=== PATIENT | male | born 1985 | race Caucasian/White ===

== ENCOUNTER 2018-09-23 21:51 | Emergency (ER) | payer OTHER ==
[2018-09-23 21:59] VITALS: BP 134/89
--- NOTE | 2018-09-23 22:10 | EDPHY ---
HPI/HX/ROS/PE/MDM Narrative: CHIEF COMPLAINT: Right ankle injury HPI: The patient is a 32 y/o male complaining of a right ankle injury today while at work. He states that he twisted his ankle twice today while working at [employer]. He is unsure how he injured it the first time, but rolled his ankle on a dust selby when he injured it the second time tonight, which was 4 hours ago. He has been able to bear minimal weight since injuring the ankle. No fever, chest pain, shortness of breath, abdominal pain, urinary or bowel complaints, numbness , paresthesias. REVIEW OF SYSTEMS: Aside from elements discussed in the HPI, a comprehensive 10 system review of systems is otherwise negative. PMH: Hernia repair, migraines SOCIAL HISTORY: Resides at a assisted house, friend at bedside, employed at [employer] PHYSICAL EXAM: Extremities: Tenderness, swelling, ecchymosis of the lateral right malleolus and lateral right foot. Full range of motion. Neuro: Oriented x3. Normal motor function. Normal sensory function. ED Course: 2229: I reviewed patient's x-rays which do no reveal any osseous injuries. Patient will be placed in a velcro stirrup splint. Procedure: Splint placement. A velcro stirrup splint was applied to the right ankle by the tech. After application of the splint I returned and re-examined the patient. The splint was adequately immobilizing the joint and distal to the splint the patient's circulation and sensation was intact. 2233: Reassessed patient and discussed imaging findings. He is now requesting pain medications; 600mg PO Motrin administered. I have advised him to follow up with an orthopedic surgeon. Return precautions provided; patient is comfortable with this plan. - Data Points Imaging Results: Imaging Impressions Ankle X-Ray 09/23/18 22:08 Impression: No definite fracture of the right ankle. Imaging: I viewed and interpreted images myself Medications Given: Discontinued Medications Ibuprofen (Motrin) 600 mg PO EDNOW ONE Stop: 09/23/18 22:15 Last Admin: 09/23/18 22:17 Dose: 600 mg General Time Seen by Provider: 09/23/18 22:05 Initial Vital Signs: Initial Vital Signs Temperature (C) 36.3 C 09/23/18 21:56 Heart Rate 96 09/23/18 21:56 Respiratory Rate 16 09/23/18 21:56 Blood Pressure 134/89 H 09/23/18 21:56 O2 Sat (%) 96 09/23/18 21:56 O2 Delivery Mode Room Air Allergies/Adverse Reactions: No Known Allergies Allergy (Unverified 09/23/18 21:55) Home Medications: Medication Instructions Recorded Propranolol HCl 09/23/18 Departure - Departure Disposition: Home, Routine, Self-Care Clinical Impression: Ankle sprain Condition: Good Instructions: Ankle Sprain (ED), Ankle Stirrup Splint (ED) Additional Instructions: Rest, ice, elevation. Follow up with an orthopedic surgeon within one week if pain persists. Return to the emergency department for worsening pain, swelling , numbness, weakness or other concerns. Wear splint for comfort, weight bear as tolerated. Referrals: [facility],. [Clinic] - As per Instructions Agustín Kan MD [Medical Doctor] - As per Instructions Stand Alone Forms: Work Comp Follow Up, Work Excuse Report Scribed for: Brian Paniagua Report Scribed by: Scarlett Vargas Date of Report: 09/23/18 Time of Report: 22:10 Physician Review and Approval Statement: Portions of this note were transcribed by an ED scribe. I personally performed the history, physical exam, and medical decision making; and confirm the accuracy of the information in the transcribed note.
[2018-09-23] MEDS ORDERED: IBUPROFEN 600 MG TAB PO ONE (22:14)
== END 2018-09-23 22:45 | disposition home or self-care (01) ==
DX: S93.401A Sprain of unspecified ligament of right ankle, initial encounter (principal); G43.909 Migraine, unspecified, not intractable, without status migrainosus; X50.9XXA Other and unspecified overexertion or strenuous movements or postures, initial encounter; Y92.512 Supermarket, store or market as the place of occurrence of the external cause; Y93.9 Activity, unspecified; Y99.0 Civilian activity done for income or pay
CPT/HCPCS: L4350

== ENCOUNTER 2019-01-03 19:06 | Emergency (ER) | payer MEDICAID, OTHER ==
--- NOTE | 2019-01-03 19:16 | EDPHY ---
H & P Stated Complaint: RUQ pain x 4 days, V/D Source: Patient Exam Limitations: No limitations - Personal History Current Tetanus Diphtheria and Acellular Pertussis (TDAP): Yes - Medical/Surgical History Hx Asthma: No Hx Chronic Respiratory Disease: No Hx Diabetes: No Hx Cardiac Disease: No Hx Renal Disease: No Hx Cirrhosis: No Hx Alcoholism: No Hx HIV/AIDS: No Hx Splenectomy or Spleen Trauma: No Other PMH: Hernia surgery as , migraine - Social History Smoking Status: Current every day smoker Alcohol Use: None Time Seen by Provider: 01/03/19 19:16 HPI/ROS: CHIEF COMPLAINT: Right upper quadrant pain, nausea, vomiting HISTORY OF PRESENT ILLNESS: The patient presents the ED with complaints of progressively worsening right upper quadrant epigastric pain. The patient reports associated nausea and vomiting. The patient denies prior history of abdominal pain. He denies prior history of abdominal surgery. The patient denies fever, cough or congestion. He has no complaints of asymmetric calf pain or swelling. The patient denies melena. He denies significant alcohol or NSAID usage. He currently rates his pain as an 8/10. REVIEW OF SYSTEMS: A comprehensive 10 point review of systems is otherwise negative aside from elements mentioned in the history of present illness. (Jett Morales) - Physical Exam Exam: General Appearance: Alert, no distress Eyes: Pupils equal and round no pallor or injection ENT, Mouth: Mucous membranes moist Respiratory: There are no retractions, lungs are clear to auscultation Cardiovascular: Regular rate and rhythm Gastrointestinal: Epigastric tenderness to palpation, right upper quadrant tenderness to palpation, no peritoneal signs. No right lower quadrant tenderness to palpation Neurological: A&O, normal motor function, normal sensory exam, normal cranial nerves Skin: Warm and dry, no rashes Musculoskeletal: Neck is supple nontender Extremities: symmetrical, full range of motion (Jett Morales) Constitutional: Initial Vital Signs Temperature (C) 36.8 C 01/03/19 19:11 Heart Rate 93 01/03/19 19:11 Respiratory Rate 20 01/03/19 19:11 Blood Pressure 125/84 H 01/03/19 19:11 O2 Sat (%) 98 01/03/19 19:11 O2 Delivery Mode Room Air Allergies/Adverse Reactions: No Known Allergies Allergy (Unverified 01/03/19 19:11) Home Medications: Medication Instructions Recorded Propranolol HCl 09/23/18 Medical Decision Making - Diagnostics Imaging Results: Imaging Impressions Abdomen Ultrasound 01/03/19 19:24 Impression: 1. Contracted gallbladder. No cholelithiasis, biliary dilation, or choledocholithiasis. 2. No free fluid. 3. Hepatic steatosis. Findings discussed with Emergency Department physician, Jett Morales M.D. , on January 03, [address] 01/03/19 20:35 Impression: 1. Moderately distended stomach; however, no evidence of small bowel obstruction or ileus. 2. No pneumoperitoneum, free fluid, or localized intraabdominal inflammatory process. 3. Normal appendix. Moderate constipation. 4. Left nephrolithiasis. No hydronephrosis. Findings discussed with Emergency Department physician, Marjan Guzman M.D., on January 03, 2019 at 2131. E:/[facility] ED Course/Re-evaluation: The patient presents the ED with complaints of epigastric pain, nausea and mild dyspepsia. The patient's symptoms have been present for the past several days. He has no right lower quadrant tenderness on exam. The patient had an IV established. He received 0.5 mg of IV Dilaudid and 4 mg of IV Zofran. The patient had screening laboratories performed including a CBC which is normal , normal serum chemistries, normal liver function test and lipase. Given his right upper quadrant tenderness a right upper quadrant ultrasound was ordered to assess for possible cholelithiasis or cholecystitis. The results of that study demonstrate no evidence of an acute pathology. Patient was re-evaluated and continues to have epigastric tenderness to palpation. Given the uncertainty of the diagnosis a CT scan of the abdomen pelvis with IV contrast has been ordered. Patient did receive a GI cocktail additionally in the ED. The patient is turned over to Dr. Guzman at shift change pending CT. (Jett Morales) I reviewed the laboratory studies. CBC and chemistry unremarkable. LFTs and lipase were normal. CT of the abdomen pelvis: Please refer the dictated report by Dr. Ruffin. No acute disease noted. I discussed the ultrasound images with Dr. Ruffin as well. 2230: I rechecked the patient. He stated he was feeling better. His abdomen was soft, nontender nondistended. He stated that his pain was in the right upper quadrant but he had no notable tenderness at this time. I discussed disposition options. I offered the patient admission if he was still feeling uncomfortable. Patient would prefer discharge home. He was given warnings prior to leaving. He will return with worsening symptoms. (Marjan Guzman) Differential Diagnosis: Differential diagnosis considered includes peptic ulcer disease, gastritis, dyspepsia, cholecystitis, pancreatitis (Jett Morales) - Data Points Laboratory Results: Laboratory Results 01/03/19 19:35 01/03/19 19:35 01/03/19 01/03/19 19:35 19:35 WBC 6.86 10^3/uL 10^3/uL (3.80-9.50) RBC 4.49 10^6/uL 10^6/uL (4.40-6.38) Hgb 13.8 g/dL g/dL (13.7-17.5) Hct 42.1 % % (40.0-51.0) MCV 93.8 fL fL (81.5-99.8) MCH 30.7 pg pg (27.9-34.1) MCHC 32.8 g/dL g/dL (32.4-36.7) RDW 12.3 % % (11.5-15.2) Plt Count 249 10^3/uL 10^3/uL (150-400) MPV 10.2 fL fL (8.7-11.7) Neut % (Auto) 56.3 % % (39.3-74.2) Lymph % (Auto) 30.6 % % (15.0-45.0) [place] % (Auto) 9.6 % % (4.5-13.0) Eos % (Auto) 2.5 % % (0.6-7.6) Baso % (Auto) 0.7 % % (0.3-1.7) Nucleat RBC Rel Count 0.0 % % (0.0-0.2) Absolute Neuts (auto) 3.86 10^3/uL 10^3/uL (1.70-6.50) Absolute Lymphs (auto) 2.10 10^3/uL 10^3/uL (1.00-3.00) Absolute Monos (auto) 0.66 10^3/uL 10^3/uL (0.30-0.80) Absolute Eos (auto) 0.17 10^3/uL 10^3/uL (0.03-0.40) Absolute Basos (auto) 0.05 10^3/uL 10^3/uL (0.02-0.10) Absolute Nucleated RBC 0.00 10^3/uL 10^3/uL (0-0.01) Immature Gran % 0.3 % % (0.0-1.1) Immature Gran # 0.02 10^3/uL 10^3/uL (0.00-0.10) Sodium 137 mEq/L mEq/L (135-145) Potassium 3.9 mEq/L mEq/L (3.5-5.2) Chloride 104 mEq/L mEq/L (97-110) Carbon Dioxide 27 mEq/l mEq/l (22-31) Anion Gap 6 mEq/L mEq/L (6-14) BUN 8 mg/dL mg/dL (7-23) Creatinine 0.8 mg/dL mg/dL (0.7-1.3) Estimated GFR > 60 Glucose 105 mg/dL H mg/dL (70-100) Calcium 8.9 mg/dL mg/dL (8.5-10.4) Total Bilirubin 0.3 mg/dL mg/dL (0.1-1.4) Conjugated Bilirubin 0.3 mg/dL mg/dL (0.0-0.5) Unconjugated Bilirubin 0.0 mg/dL mg/dL (0.0-1.1) AST 31 IU/L IU/L (17-59) ALT 44 IU/L IU/L (21-72) Alkaline Phosphatase 100 IU/L IU/L (38-126) Total Protein 6.0 g/dL L g/dL (6.3-8.2) Albumin 3.6 g/dL g/dL (3.5-5.0) Lipase 82 IU/L IU/L (23-300) Medications Given: Discontinued Medications Al Hydroxide/Mg Hydroxide (Maalox Susp) 30 ml PO ONCE ONE Stop: 01/03/19 20:13 Last Admin: 01/03/19 20:25 Dose: 30 ml Hydromorphone HCl (Dilaudid) 0.5 mg IVP EDNOW ONE Stop: 01/03/19 19:25 Last Admin: 01/03/19 19:41 Dose: Not Given Hyoscyamine Sulfate (Levsin, Hyomax-Sl) 0.25 mg PO ONCE ONE Stop: 01/03/19 20:13 Last Admin: 01/03/19 20:25 Dose: 0.25 mg Sodium Chloride (Ns) 1,000 mls @ 0 mls/hr IV EDNOW ONE; Wide Open PRN Reason: Protocol Stop: 01/03/19 19:25 Last Admin: 01/03/19 20:05 Dose: 1,000 mls Lidocaine (Lidocaine 2% Viscous) 15 ml PO ONCE ONE Stop: 01/03/19 20:13 Last Admin: 01/03/19 20:25 Dose: 15 ml Ondansetron HCl (Zofran) 4 mg IVP EDNOW ONE Stop: 01/03/19 19:25 Last Admin: 01/03/19 20:05 Dose: 4 mg Departure - Departure Disposition: Home, Routine, Self-Care Clinical Impression: Abdominal pain Qualifiers: Abdominal location: right upper quadrant Qualified Code(s): R10.11 - Right upper quadrant pain Condition: Good Instructions: Acute Abdominal Pain (ED) Additional Instructions: Return with increasing pain, fever, repeated vomiting or any other concerns. Call your physician in the morning to make an appointment either Wednesday or . Referrals: Alma Rosa Barfield, [Primary Care Provider] - 1-2 days without fail
[2019-01-03] MEDS ORDERED: NS 1,000 ML IV ONE (19:24)
[2019-01-03] MEDS ORDERED: ONDANSETRON 4 MG/2 ML VIAL IVP ONE (19:24)
[2019-01-03] MEDS ORDERED: HYDROmorphONE/DILAUDID 2 MG/ML INJ IVP ONE (19:24)
[2019-01-03 19:46] LABS: PLATELET COUNT 249 10^3/uL (150-400)
[2019-01-03] MEDS ORDERED: HYOSCYAMINE SULFATE 0.125 MG TAB PO ONE (20:12)
[2019-01-03] MEDS ORDERED: LIDOCAINE 2% VISCOUS 15 ML UDCUP PO ONE (20:12)
[2019-01-03] MEDS ORDERED: MAG HYDROX/AL HYDROX/SIMETH 30 ML UDCUP PO ONE (20:12)
[2019-01-03] MEDS ORDERED: IOPAMIDOL (ISOVUE-300) 100 ML BTL ONE (20:47)
[2019-01-03] MEDS ORDERED: HYDROCOD/APAP 5/325 PREPACK#6 BTL TAKEHOME ONE (22:38)
[2019-01-03] MEDS ORDERED: ONDANSETRON 4MG PREPACK#2 BTL TAKEHOME ONE (22:38)
[2019-01-03 22:54] VITALS: BP 95/65
== END 2019-01-03 22:52 | disposition home or self-care (01) ==
DX: R10.11 Right upper quadrant pain (principal); R11.0 Nausea; N32.89 Other specified disorders of bladder; K76.0 Fatty (change of) liver, not elsewhere classified; N20.0 Calculus of kidney; E86.9 Volume depletion, unspecified
CPT/HCPCS: 96374; J2405; Q9967

== ENCOUNTER 2019-02-08 20:19 | Emergency (ER) | payer MEDICAID ==
[2019-02-08 20:25] VITALS: BP 108/72
--- NOTE | 2019-02-08 20:36 | EDPHY ---
H & P Time Seen by Provider: 02/08/19 20:29 HPI/ROS: CHIEF COMPLAINT: Right hand pain HISTORY OF PRESENT ILLNESS: 33-year-old male presents with right hand pain. He punched a wooden pole just prior to arrival and had immediate onset of severe right hand pain. The pain is currently moderate and associated with moderate swelling. No other injuries. +Etoh tonight ROS: No numbness, weakness, bleeding, syncopal episode, other injury. Past Medical/Surgical History: Denies Smoking Status: Current every day smoker Physical Exam: Alert, pleasant Extremities: Right hand-tenderness and swelling over the 4th and 5th metacarpals, superficial abrasions over the PIP's; right wrist-normal inspection , no snuffbox tenderness, range of motion causes hand pain Skin: intact Neuro: Motor and sensory intact Vascular: Capillary refill brisk distally Constitutional: Initial Vital Signs Temperature (C) 36.7 C 02/08/19 20:20 Heart Rate 88 02/08/19 20:20 Respiratory Rate 16 02/08/19 20:20 Blood Pressure 108/72 02/08/19 20:20 O2 Sat (%) 96 02/08/19 20:20 O2 Delivery Mode Room Air Allergies/Adverse Reactions: No Known Allergies Allergy (Verified 02/08/19 20:24) Home Medications: Medication Instructions Recorded Propranolol HCl 09/23/18 Hydrocodone/APAP 5/325 [[place] 1 - 2 tab PO Q4H PRN #10 tab 02/08/19 5/325] Medical Decision Making - Diagnostics Imaging Results: Xray: displaced 4th metacarpal fx Imaging: I viewed and interpreted images myself Procedures: An orthoglass ulnar gutter splint was placed by the sterilization tech. Neurovasc intact after application. ED Course/Re-evaluation: This pt presents with hand pain after punching a stationary object. Xray reveals a displaced 4th metacarpal fx. Splint placed. Will need further ortho care/reduction. f/u with hand surgery. Departure - Departure Disposition: Home, Routine, Self-Care Clinical Impression: Fracture of metacarpal of right hand, closed Qualifiers: Encounter type: initial encounter Metacarpal bone: fourth Metacarpal location: shaft Fracture alignment: displaced Qualified Code(s): S62.324A - Displaced fracture of shaft of fourth metacarpal bone, right hand, initial encounter for closed fracture Condition: Good Instructions: Boxer Fracture (ED) Referrals: Alma Rosa Barfield DO [Primary Care Provider] - As per Instructions Thaddeus Marquez MD [Medical Doctor] - As per Instructions (Call to make an appointment.) Stand Alone Forms: Work Excuse Prescriptions: Hydrocodone/APAP 5/325 [[place] 5/325] 1 - 2 tab PO Q4H PRN #10 tab PRN Reason: Pain, Moderate
== END 2019-02-08 21:30 | disposition home or self-care (01) ==
PROC: 2W3CX1Z Immobilization of Right Lower Arm using Splint (ICD-10-PCS; principal; 2019-02-08)
DX: S62.324A Displaced fracture of shaft of fourth metacarpal bone, right hand, initial encounter for closed fracture (principal); W22.8XXA Striking against or struck by other objects, initial encounter